=== PATIENT | female | born 1975 | race Caucasian/White ===

== ENCOUNTER 2016-07-10 09:44 | Emergency (ER) | payer SELFPAY ==
[~2016-07-10] VITALS: Ht 167.6 cm; Wt 66.0 kg
[2016-07-10 09:45] VITALS: BP 144/86; PULSE 72; RESP 20; TEMP 97.8; O2SAT 97
--- NOTE | 2016-07-10 10:20 | PD ---
HPI Chief Complaint: Oral / Dental Pain or Problem Time Seen by Provider: 10:20 Travel History International Travel<30 days: No Contact w/Intl Traveler<30days: No Traveled to known affect area: No History of Present Illness HPI 40-year-old female presents to the emergency department for evaluation of dental abscess that started yesterday. She reports that she had some drainage from the area yesterday. She reports localized tenderness and swelling. She denies any facial swelling. No fevers or chills. She denies any chance of .. She has no chronic medical problems and takes no prescribed medications. [facility] Past Medical History LMP: 06/26/16 Social History Alcohol Use: No Tobacco Use: Yes Substance Use: No Allergies-Medications (Allergen,Severity, Reaction): Coded Allergies: No Known Allergies (Unverified , 07/10/16) Reported Meds & Prescriptions Reported Meds & Active Scripts Active Ibuprofen 800 Mg Tab 800 Mg PO TID PRN Penicillin V Potassium 500 Mg Tab 500 Mg PO Q6H 10 Days Review of Systems Except as stated in HPI: all other systems reviewed are Neg Physical Exam Narrative GENERAL: Well-developed well-nourished female patient, ambulatory. Afebrile. SKIN: Warm and dry. HEAD: Normocephalic. Atraumatic. No facial swelling. ENT: Mucosa pink and moist. No erythema or exudates. No uvular edema. No uvular , palatal, or tonsillar deviation. Airway patent. Nasal turbinates appear normal without nasal blood, purulent drainage or septal hematoma. Bilateral tympanic membranes are clear without erythema or perforation. Patient has now gingival fluctuance over tooth #6. This is consistent with a dental abscess. EYES: No scleral icterus. No injection or drainage. NECK: Supple, trachea midline. No JVD or lymphadenopathy. CARDIOVASCULAR: Regular rate and rhythm without murmurs, gallops, or rubs. RESPIRATORY: Breath sounds equal bilaterally. No accessory muscle use. Lungs sounds are clear to auscultation. GASTROINTESTINAL: Abdomen soft, non-tender, nondistended. MUSCULOSKELETAL: No cyanosis, or edema. Data Data Last Documented VS Vital Signs Date Time Temp Pulse Resp B/P Pulse Ox O2 Delivery O2 Flow Rate FiO2 07/10/16 09:45 97.8 72 20 144/86 97 Room Air Orders Wound Culture And Gram Stain (07/10/16 10:19) Clindamycin (Cleocin) (07/10/16 11:30) [facility] Medical Decision Making Medical Screen Exam Complete: Yes Emergency Medical Condition: Yes Medical Record Reviewed: Yes Differential Diagnosis Dental abscess versus dental caries versus gingivitis Narrative Course 40-year-old female presents to the emergency department for evaluation of dental pain and possible dental abscess. Physical exam is consistent with a dental abscess. Patient is given clindamycin 300 mg by mouth in the emergency department. She gives verbal consent for incision and drainage. Patient requests a free antibiotic due to lack of insurance at this time. She will be discharged with a prescription for pen VK and ibuprofen. The patient is to follow-up with a dentist. She verbalizes agreement and understanding. Procedures Procedure Narrative INCISION AND DRAINAGE OF ABSCESS: The area was prepped and was sterilely draped. Topical Hurricaine spray was used to anesthetize the area. The area was properly anesthetized. A number 11 scalpel was used to make a pinpoint incision across the area of the abscess. Cultures were obtained. The abscess was drained an irrigated with normal saline. Diagnosis Primary Impression: Dental abscess Referrals: Dentist call for appointment Patient Instructions: Dental Abscess (ED), General Instructions Additional Instructions: Take antibiotic as directed until gone. This is free of [employer]. Take ibuprofen as directed as needed with food for pain. Follow-up with a dentist. Return to the emergency department for any acute worsening of symptoms. Med/Other Pt SpecificInfo: Prescription(s) given Scripts Ibuprofen 800 Mg [id number] Mg PO TID PRN (PAIN SCALE 1 TO 10) #21 TAB Ref 0 Prov:Kristel Mendoza 07/10/16 Penicillin V Potassium 500 Mg [id number] Mg PO Q6H 10 Days Ref 0 Prov:Kristel Mendoza 07/10/16 Disposition: 01 DISCHARGE HOME Condition: Stable Kristel Mendoza Jul 10, 2016 10:20
[2016-07-10] MEDS ORDERED: PENI500T PO (11:11)
[2016-07-10] MEDS ORDERED: IBUP800T23 PO (11:11)
[2016-07-10] MEDS ORDERED: CLINDAMYCIN 150 MG CAP PO ONE (11:30)
== END 2016-07-10 11:33 | disposition home or self-care (01) ==
LOC: NETRI 09:44
DX: K04.7 Periapical abscess without sinus (principal); Z72.0 Tobacco use
CPT/HCPCS: 10060; 87070